=== PATIENT | male | born 1975 | race Caucasian/White ===

== ENCOUNTER 2020-06-06 15:33 | Emergency (ER) | payer OTHER ==
[~2020-06-06] VITALS: Ht 167.6 cm; Wt 90.7 kg
[2020-06-06 15:43] VITALS: BP 135/88
[2020-06-06] MEDS ORDERED: IBUPROFEN 600 MG TABLET PO ONE ×2 (16:30)
== END 2020-06-06 17:11 | disposition home or self-care (01) ==
LOC: ER 15:33
DX: S92.355A Nondisplaced fracture of fifth metatarsal bone, left foot, initial encounter for closed fracture (principal); Z98.890 Other specified postprocedural states; W22.8XXA Striking against or struck by other objects, initial encounter; Y93.01 Activity, walking, marching and hiking; Y92.098 Other place in other non-institutional residence as the place of occurrence of the external cause; Y99.8 Other external cause status
CPT/HCPCS: 73630-TC

== ENCOUNTER → 2020-08-03 | Emergency (ER) | payer OTHER ==
[~2020-08-03] VITALS: Ht 172.7 cm; Wt 88.5 kg
[~2020-08-03] MED LIST: CEFTRIAXONE 1 G VIAL IM ONE; CEFTRIAXONE 1 G VIAL ONE; CEFTRIAXONE 500 MG VIAL ONE; LIDOCAINE /MPF 1% VIAL 5 ML VIAL ONE
--- NOTE | 2020-08-03 10:55 | NUR ---
pt came from home with c/o testicular pain x 1 week 6/10 pain scale. no n/v. denies dysuria. no fever. denies any purulent discharges when urinating. awaiting for MD welch
--- NOTE | 2020-08-03 10:58 | NUR ---
urine collected and sent to lab
--- NOTE | 2020-08-03 11:00 | NUR ---
ACCOMPANIED DR HENRY FOR TESTICULAR EXAM
--- NOTE | 2020-08-03 11:07 | NUR ---
SEEN AND EVALUATED BY
--- NOTE | 2020-08-03 11:10 | NUR ---
TESTICULAR EXAM TOLERATED WELL.
[2020-08-03 11:36] LABS: APPEARANCE,URINE CLEAR (CLEAR); BILIRUBIN,URINE NEGATIVE (NEGATIVE); BLOOD, URINE NEGATIVE Ery/uL (NEGATIVE); COLOR,URINE YELLOW (YELLOW); KETONES,URINE TRACE (NEGATIVE); LEUKOCYTE ESTERASE ,URINE NEGATIVE (NEGATIVE); NITRITE, URINE NEGATIVE (NEGATIVE); PROTEIN,URINE NEGATIVE (NEGATIVE); UGLUCOSE NEGATIVE (NEGATIVE); UROBILINOGEN,URINE 0.2 EU/dL (0.2)
[2020-08-03 11:48] LABS: BACTERIA,URINE None seen /HPF (None Seen); RBC,URINE 0-2 /HPF (0-2); SQUAMOUS EPITHELIAL CELL,UR Rare /HPF (None Seen); WBC,URINE 0-2 /HPF (0-3)
[2020-08-03 13:35] VITALS: BP 127/81
--- NOTE | 2020-08-03 13:37 | NUR ---
Patient discharged to home in stable condition. Written and verbal after care instructions given. Patient verbalizes understanding of instruction. Unable to depart, [facility] error.
== END | disposition home or self-care (01) ==
LOC: ER 10:54
DX: N45.1 Epididymitis (principal); Z98.890 Other specified postprocedural states
CPT/HCPCS: 76870; 81001; 87491; 87591; 96372; 99284; J0696; J3490; 81000-TC

== ENCOUNTER 2023-09-11 14:44 | Emergency (ER) | payer OTHER ==
[~2023-09-11] VITALS: Ht 172.7 cm; Wt 88.5 kg
[2023-09-11] MEDS ORDERED: KETOROLAC TROMETHAMINE 15 MG/ML VIAL ONE (16:59)
[2023-09-11] MEDS ORDERED: CYCLOBENZAPRINE 10 MG TABLET ONE (16:59)
[2023-09-11] MEDS ORDERED: KETOROLAC TROMETHAMINE 15 MG/ML VIAL IM ONE (17:00)
[2023-09-11] MEDS ORDERED: CYCLOBENZAPRINE 10 MG TABLET PO ONE (17:00)
[2023-09-11] MEDS ORDERED: CYCL5TAB PO (17:53)
[2023-09-11] MEDS ORDERED: IBUP-1957 PO (17:53)
[2023-09-11 18:06] VITALS: BP 126/76; TEMP 97.9; O2SAT 100
== END 2023-09-11 18:08 | disposition home or self-care (01) ==
LOC: ER 14:48
DX: M54.2 Cervicalgia (principal); Z79.899 Other long term (current) drug therapy; V49.3XXA Car occupant (driver) (passenger) injured in unspecified nontraffic accident, initial encounter; Y93.89 Activity, other specified; Y92.89 Other specified places as the place of occurrence of the external cause; Y99.8 Other external cause status
CPT/HCPCS: 99283; 96372; J1885